=== PATIENT | female | born 2000 | race Caucasian/White ===

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

== ENCOUNTER 2021-10-05 16:29 | Emergency (ER) | payer OTHER, SELFPAY ==
[2021-10-05 18:00] VITALS: BP 126/74; PULSE 89; RESP 22; TEMP 36.8; O2SAT 98; BMI 34.7
[2021-10-05 18:10] LABS: Apearance,Urine Clear (Clear); Color,Urine Yellow (Yellow)
[2021-10-05 18:11] LABS: Bilirubin,Urine Negative (Negative); Blood, Urine Negative (Negative); Glucose,Urine (UA) Negative (Negative); Ketones,Urine Negative (Negative); Protein,Urine Negative (Negative); Specific Gravity, Urine 1.025 (1.005-1.030); UTC Leukocyte Esterase,Urine 1+ (Negative); UTC Nitrate,Urine Negative (Negative); Urobilinogen,Urine 0.2 EU/dl (0.2)
--- NOTE | 2021-10-05 18:16 | HMH.EDUTC ---
[facility] [place] Clinical Impression: UTI (urinary tract infection) Qualifiers: Urinary tract infection type: acute cystitis Hematuria presence: without hematuria Qualified Code(s): N30.00 - Acute cystitis without hematuria Disposition: Home, Self-Care Condition on Discharge: Good Instructions: DI for Urinary Tract Infection (UTI) Additional Instructions: Increase fluids, water and not soda or tea. Can drink cranberry juice or cranberry extract. White front to back Wear cotton underwear Empty bladder after intercourse Start antibiotics immediately and make sure you take the full course although you may start to see improvement over the next 48 hours. You can eat yogurt or take probiotics to decrease diarrhea or yeast infection caused by the antibiotic Be sure to follow-up anytime for new or worsening symptoms in 48 hours for wound urine culture results be sure to let you PCP no recent urine for culture so they can request records and ensure that you have appropriate antibiotic if you are not getting better or getting worse. If symptoms worsen or do not improve return or be seen in the ER. Follow-up with primary care this week. Prescriptions: cephALEXin [Cephalexin 500mg Tab] 500 mg PO BID 7 Days #14 tab Transmission Status: Pending to [facility] Referrals: Pancho Grace MD [Primary Care Provider] - Time of Disposition: 18:20 Medical Decision Making - Jorge A Inquiry Pt receiving controlled substance: No - Lab Data Lab Results 10/05/21 18:03: Urine Color Yellow, Urine Appearance Clear, Urine pH 7.0, Ur Specific [place] 1.025, Urine Protein Negative, Urine Glucose (UA) Negative, Urine Ketones Negative, Urine Blood Negative, Urine Nitrate Negative, Urine Bilirubin Negative, Urine Urobilinogen 0.2, Ur Leukocyte Esterase 1+ A Orders (Tests/Meds): ED MEDICATIONS Generic Name Dose Route Start Last Admin Trade Name Freq PRN Reason Stop Dose Admin Cephalexin HCl 500 mg 10/05/21 18:19 Cephalexin 500mg Capsule PO 10/05/21 18:20 ONCE ONE [facility] [place] - General Chief complaint: Urgent [facility] Stated complaint: UTI Time Seen by Provider: 10/05/21 18:16 Mode of Arrival: Ambulatory Source of Information: Patient Limitations: No Limitations - History of Present Illness Provider Complaint: 20 yr old female presents for burning, freq,urgency and low back pain - Related Data Home Medications Medication Instructions Recorded Confirmed etonogestrel 68 mg subdermal 68 mg SUBDERMAL ONCE each 01/25/19 09/02/20 implant Previous Rx's Medication Instructions Recorded methylPREDNISolone [Medrol 4mg 4 mg PO DIRECTED #21 tab 09/02/20 tab] cephALEXin [Cephalexin 500mg Tab] 500 mg PO BID 7 Days #14 tab 10/05/21 Allergies Allergy/AdvReac Type Severity Reaction Status Date / Time watermelon Allergy Mild Verified 07/23/20 15:35 cefdinir [From OMNICEF] Allergy Unknown Verified 07/23/20 15:35 [facility] History - Hepatitis A Screen Attestation statement:: This patient has been screened for Hepatitis A risk factors. I have reviewed the patient's past medical history: Yes Medical History: Reports:: Atrial Fibrillation, MRSA Denies:: Anxiety, Asthma, Cancer, Depression, Diabetes Mellitus Type 1, Diabetes Mellitus Type 2, Hyperlipidemia, Hypertension, Migraine, Seizures Other Medical History: Reports: Arthritis Comment: JEA Laterality Cases: Bilateral: Tonsillectomy Other Surgeries: No: Amputation: No Fractures: No Comment: tonsilectomy - Social History Smoking Status: Never smoker Alcohol Intake: never Substance Use Type: denies use Occupational Status: other - Psychiatric History Pschychiatric History:: Denies:: Anxiety, Depression Family Hx:: No significant family history ROS Obtained: Yes Systems reviewed as appropriate & no additional complaints - Constitutional Constitutional: Reports system reviewed and no additional complaints, except as d
[2021-10-05 18:26] VITALS: BP 126/74; PULSE 89; RESP 22; TEMP 36.8; O2SAT 98
== END 2021-10-05 18:38 | disposition home or self-care (01) ==
PROVIDERS: Emergency Provider Nurse Practitioner Family; PCP Family Medicine
DX: N30.00 Acute cystitis without hematuria (principal); M54.50 Low back pain, unspecified
CPT/HCPCS: 81003; 87086; 99202; G0463

== ENCOUNTER → 2021-11-07 15:51 | Outpatient (CLI) | payer OTHER, SELFPAY ==
[2021-11-10 12:44] LABS: Neisseria gonorrhoeae, NAA Negative (Negative)
== END ==
PROVIDERS: Visit Provider Obstetrics & Gynecology
DX: Z11.3 Encounter for screening for infections with a predominantly sexual mode of transmission (principal)
CPT/HCPCS: 87491; 87591

== ENCOUNTER 2022-03-03 18:09 | Emergency (ER) | payer OTHER, SELFPAY ==
[2022-03-03 18:11] VITALS: BP 117/89; PULSE 90; RESP 16; TEMP 36.9; O2SAT 100; BMI 31.6
--- NOTE | 2022-03-03 18:21 | HMH.EDGENADL ---
ED Disposition Clinical Impression: Nausea & vomiting Qualifiers: Vomiting type: unspecified Qualified Code(s): R11.2 - Nausea with vomiting, unspecified Diarrhea Qualifiers: Diarrhea type: unspecified type Qualified Code(s): R19.7 - Diarrhea, unspecified Disposition: Home, Self-Care Condition on Discharge: Good Instructions: Diarrhea, Nausea and Vomiting-Adult Additional Instructions: follow up PCP as needed, return here for worse Prescriptions: Ondansetron [Zofran 4mg ODT] 4 mg PO TIDP PRN #10 tab PRN Reason: Nausea And Vomiting Transmission Status: Received by [facility] Referrals: Pancho Grace MD [Primary Care Provider] - - Critical Care Critical Care Time: No Attestation: On , the high probability of a clinically significant, sudden or life threatening deterioration of the following system(s) required my full and direct attention, intervention and personal management. The time I documented below is in addition to time spent performing reported procedures but includes the following listed in this critical care notation. Medical Decision Making - Medical Records Medical records reviewed: Yes: I reviewed the patient's medical records. - Jorge A Inquiry Pt receiving controlled substance: No Vital Signs: 03/03/22 18:11 Temperature 98.5 F Temperature Source Oral Pulse Rate [Right] 90 Respiratory Rate 16 Blood Pressure [Right Arm] 117/89 Blood Pressure Mean [Right Arm] 98 Blood Pressure Source [Right Arm] Automatic Cuff Blood Pressure Position [Right Arm] Sitting 02 Sat by Pulse Oximetry 100 Oxygen Delivery Method Room Air - Lab Data Lab Results 03/03/22 18:40: WBC 11.4, RBC 5.16, Hgb 16.9 H, Hct 49.1 H, MCV 95.1, MCH 32.8 H, MCHC 34.5, RDW 13.0, Plt Count 254, MPV 9.3, Neut % (Auto) 88.6 H, Lymph % (Auto) 5.6 L, [place] % (Auto) 3.1, Eos % (Auto) 0.9, Baso % (Auto) 1.8, Neut # (Auto) 10.1 H, Lymph # (Auto) 0.6 L, [place] # (Auto) 0.4, Eos # (Auto) 0.1, Baso # (Auto) 0.2, Total Counted 100, Neutrophils % (Manual) 91 H, Lymphocytes % (Manual) 6 L, Monocytes % (Manual) 2, Eosinophils % (Manual) 1, Platelet Estimate Normal 03/03/22 18:40: Sodium 141, Potassium 3.9, Chloride 105, Carbon Dioxide 21 L, Anion Gap 18.9 H, BUN 10, Creatinine 0.80, Estimated Creat Clear 153, Estimated GFR 91, Est GFR ( Amer) 111, Glucose 153 H, Calcium 9.9, Total Bilirubin 0.9, AST 30, ALT 24, Alkaline Phosphatase 83, Total Protein 8.3 H, Albumin 5.0, Globulin 3.3 H, Albumin/Globulin Ratio 1.5 Result diagrams: 03/03/22 18:40 03/03/22 18:40 Orders (Tests/Meds): ED MEDICATIONS Generic Name Dose Route Start Last Admin Trade Name Freq PRN Reason Stop Dose Admin Sodium Chloride 1,000 mls @ 999 mls/hr 03/03/22 18:30 03/03/22 18:35 Sod Chlor 0.9% 1000ml Bag IV 03/03/22 19:30 999 mls/hr .Q1H1M PETE Administration Discontinued Medications Generic Name Dose Route Start Last Admin Trade Name Freq PRN Reason Stop Dose Admin Metoclopramide HCl 10 mg 03/03/22 18:20 03/03/22 18:34 Metoclopramide Hcl 10mg/2ml Vial IVP 03/03/22 18:21 10 mg ONCE ONE Administration Ondansetron HCl 8 mg 03/03/22 18:20 03/03/22 18:35 Ondansetron 4mg/2ml Vial IV 03/03/22 18:21 8 mg ONCE ONE Administration Medical Decision Narrative: reeval, vss, appears well, feels better, abd s/nt General Adult HPI - General Stated complaint: vomiting and diarrhea Time Seen by Provider: 03/03/22 18:21 - History of Present Illness HPI narrative: n/v/d all day pt/mom say it similar to stomach bug mom had last week tamara abd pain Onset (ago): hour(s) Radiation: non-radiation Consistency: constant Relieving factors: none Exacerbating factors: eating Associated symptoms: nausea/vomiting - Related Data Home Medications Medication Instructions Recorded Confirmed etonogestrel 68 mg subdermal 68 mg SUBDERMAL ONCE each 01/25/19 11/07/21 implant Previous Rx's Medication Instruct
--- NOTE | 2022-03-03 18:29 | PC.NURSE ---
pt Pt to bathroom
[2022-03-03 18:53] LABS: Basophils # 0.2 K/mm3 (0-0.2); Basophils % 1.8 % (0.1-2.0); Eosinophils # 0.1 K/mm3 (0.0-0.4); Eosinophils % 0.9 % (0.1-12.0); Hematocrit 49.1 % (37.0-47.0); Hemoglobin 16.9 g/dL (12.2-16.2); Lymphocytes # 0.6 K/mm3 (0.7-4.5); Lymphocytes % 5.6 % (10-50); Mean Corpuscular HGB Conc 34.5 g/dL (31.8-35.4); Mean Corpuscular Hemoglobin 32.8 pg (27.0-31.2); Mean Corpuscular Volume 95.1 fl (81-99); Mean Platelet Volume 9.3 fl (7.4-10.4); Monocytes # 0.4 K/mm3 (0.1-1.0); Monocytes % 3.1 % (1.7-9.3); Neutrophils # 10.1 K/mm3 (1.8-7.8); Neutrophils % 88.6 % (37.0-80.0); Platelet Count 254 K/mm3 (142-424); Red Blood Count 5.16 M/mm3 (4.20-5.40); White Blood Count 11.4 K/mm3 (4.5-13.0)
[2022-03-03 18:59] LABS: MANUAL DIFFERENTIAL MANUAL DIFFERENTIAL (MANUAL DIFF)
[2022-03-03 19:01] LABS: Alanine Aminotransferase 24 U/L (12-78); Albumin/Globulin Ratio 1.5 (1.1-1.8); Alkaline Phosphatase 83 U/L (38-126); Anion Gap 18.9 mEq/L (5-15); Aspartate Amino Transferase 30 U/L (14-36); Bilirubin,Total 0.9 mg/dl (0.2-1.3); Blood Urea Nitrogen 10 mg/dl (7-17); Calcium 9.9 mg/dl (8.4-10.2); Carbon Dioxide 21 mmol/L (22.0-30.0); Chloride 105 mmol/L (98-107); Creatinine Clearance Estimated 153 mL/min (50-200); Estimated Glomerular Filt Rate 91 ml/min (>60); GFR (African American) 111 ML/MIN (>60); Globulin 3.3 g/dL (1.3-3.2); Glucose 153 mg/dl (74-100); Potassium 3.9 mmoL/L (3.5-5.1); Sodium 141 mmol/L (136-145); Total Protein,Serum 8.3 g/dl (6.3-8.2)
--- NOTE | 2022-03-03 19:02 | PC.NURSE ---
pt resting in bed, warm blanket provided. No new needs at this time
[2022-03-03 19:19] LABS: Eosinophils % 1 % (0-3); Lymphocytes % 6 % (10-50); Monocytes % 2 % (2-9); Neutrophils % 91 % (42-76); Platelet Estimate Normal; Total Cells Counted 100
[2022-03-03 20:08] VITALS: BP 115/74; PULSE 81; RESP 16; TEMP 36.9; O2SAT 100
== END 2022-03-03 20:17 | disposition home or self-care (01) ==
PROVIDERS: Emergency Provider Emergency Medicine; PCP Family Medicine
DX: R11.2 Nausea with vomiting, unspecified (principal); R19.7 Diarrhea, unspecified; Z88.1 Allergy status to other antibiotic agents; Z86.14 Personal history of Methicillin resistant Staphylococcus aureus infection; I48.91 Unspecified atrial fibrillation; M19.90 Unspecified osteoarthritis, unspecified site
CPT/HCPCS: 80053; 85007; 85025; 96365; 96375; 99284; J2405

== ENCOUNTER 2022-05-31 15:41 | Emergency (ER) | payer OTHER, SELFPAY ==
[2022-05-31 16:40] VITALS: BP 125/66; PULSE 86; RESP 19; TEMP 36.8; O2SAT 98; BMI 31.6
[2022-05-31 16:46] LABS: UTC Strep Screen (Rapid) Negative (Negative)
--- NOTE | 2022-05-31 17:18 | HMH.EDUTC ---
[facility] [place] Clinical Impression: Sore throat (viral) UTI (urinary tract infection) Qualifiers: Urinary tract infection type: site unspecified Hematuria presence: without hematuria Qualified Code(s): N39.0 - Urinary tract infection, site not specified Disposition: Home, Self-Care Condition on Discharge: Good Instructions: Sore Throat, DI for Urinary Tract Infection (UTI) Additional Instructions: *Monitor Temp, Over the counter Motrin or Tylenol as directed/as needed Tylenol every 4 hours and Motrin every 6 hours (as long as your family doctor has told you that you can take it) for fever or pain. and straight to ER if unable to lower temp less than 101.0 after medication given *Warm salt water gargles may help to soothe the throat *Throat Lozenges *Warm fluids like tea with honey may help to soothe the throat *Sleep elevated *Humidifier/Vaporizer Your throat swab was sent for culture. Those results are typically sent to your primary care. Be sure to follow up in 2-3 days with your family doctor/primary care physician if no improvement so they can review those result and treat if necessary. If you don?t have a primary care doctor, I recommend you get one but in the mean time, you will have to return to a walk in clinic Follow up IMMEDIATELY for new or worsening symptoms or no Noticeable improvement over the next 48-72 hours. 911 for difficulty breathing or swallowing You were tested for today for COVID19 your test result should be back in the next 24-48 hours, you may check your results on the [facility] My Health Portal Make sure to take your Vitamins Vit. C Vit D and Zinc if you can take them Prescriptions: Nitrofurantoin Monohyd/M-Cryst [Macrobid 100 mg Capsule] 100 mg PO BID 5 Days #10 cap Transmission Status: Pending to [facility] Referrals: Pancho Grace MD [Primary Care Provider] - As needed Forms: Work/School Release Medical Decision Making - Jorge A Inquiry Pt receiving controlled substance: No Jorge A was queried for this patient: No Vital Signs: 05/31/22 16:40 Temperature 98.3 F Temperature Source Oral Pulse Rate [Left Brachial] 86 Respiratory Rate 19 Blood Pressure [Left Arm] 125/66 Blood Pressure Mean [Left Arm] 85 Blood Pressure Source [Left Arm] Automatic Cuff Blood Pressure Position [Left Arm] Sitting 02 Sat by Pulse Oximetry 98 Oxygen Delivery Method Room Air - Lab Data Lab results reviewed: Yes: I reviewed the patient's lab results. Lab Results 05/31/22 16:24: Urine HCG, Qual Negative 05/31/22 16:38: Strep Scn Rapid [facility] Negative 05/31/22 17:19: Urine Color Yellow, Urine Appearance Clear, Urine pH 6.5, Ur Specific [place] >= 1.030, Urine Protein 1+, Urine Glucose (UA) Negative, Urine Ketones Negative, Urine Blood Negative, Urine Nitrate Negative, Urine Bilirubin Negative, Urine Urobilinogen 1, Ur Leukocyte Esterase Trace Orders (Tests/Meds): ORDERS Category Date Time Status Strep Screen Confirmation Stat Micro 05/31/22 16:38 Received Urine Culture Stat Micro 05/31/22 16:24 Received [facility] [place]PI - General Stated complaint: poss strep throat Time Seen by Provider: 05/31/22 17:18 Mode of Arrival: Ambulatory Source of Information: Patient Limitations: No Limitations Description of Symptoms (Recalled from Triage Doc. by RN): PATIENT C/O SORE THROAT SINCE WEDNESDAY HEENT Symptoms (Recalled from RN notes): Yes Resp Symptoms (Recalled from RN notes): No Skin Symptoms (Recalled from RN notes): No MS Symptoms (Recalled from RN notes): No Functional Status (Recalled from RN notes): WNL - History of Present Illness Provider Complaint: Patient states that she has been having sore throat since Wednesday that has continued and today was feeling worse States that it hurts when she swallows States that she hasnt been around COVID that she is aware of but some people at work has been coughing State that she has also been having some burning with urination and feeling of urgency an
[2022-05-31 17:25] LABS: Apearance,Urine Clear (Clear); Color,Urine Yellow (Yellow); PH,Urine 6.5 (5.0-8.5); Specific Gravity, Urine >= 1.030 (1.005-1.030)
[2022-05-31 17:26] LABS: Bilirubin,Urine Negative (Negative); Blood, Urine Negative (Negative); Glucose,Urine (UA) Negative (Negative); Ketones,Urine Negative (Negative); Protein,Urine 1+ (Negative); UTC Leukocyte Esterase,Urine Trace (Negative); UTC Nitrate,Urine Negative (Negative); Urobilinogen,Urine 1 EU/dl (0.2)
[2022-05-31 17:35] LABS: Urine Pregnancy, HCG Qual. Negative (Negative)
[2022-05-31 17:50] VITALS: BP 125/66; PULSE 86; RESP 19; TEMP 36.8; O2SAT 98
== END 2022-05-31 18:00 | disposition home or self-care (01) ==
PROVIDERS: Emergency Provider Nurse Practitioner; PCP Family Medicine
DX: J02.8 Acute pharyngitis due to other specified organisms (principal); N39.0 Urinary tract infection, site not specified; Z20.822 Contact with and (suspected) exposure to COVID-19
CPT/HCPCS: 81003; 81025; 87086; 87880; 99212; C9803; G0463; U0003; U0005

== ENCOUNTER 2022-09-23 18:20 | Emergency (ER) | payer OTHER, SELFPAY ==
[2022-09-23 18:21] VITALS: BP 128/79; PULSE 83; RESP 17; TEMP 36.7; O2SAT 100; BMI 33.3
--- NOTE | 2022-09-23 18:22 | PC.NURSE ---
1822 PT PLACED IN C-COLLAR
[2022-09-23 18:33] VITALS: BMI 33.3
--- NOTE | 2022-09-23 18:43 | PC.NURSE ---
DR. COATES AT BEDSIDE
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
--- NOTE | 2022-09-23 18:49 | PC.NURSE ---
C-COLLAR REMOVED PER DR. COATES
[2022-09-23 18:52] LABS: Urine Pregnancy, HCG Qual. Negative (Negative)
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
[2022-09-23 20:44] VITALS: BP 128/79; PULSE 77; RESP 18; TEMP 36.7; O2SAT 100
== END 2022-09-23 20:52 | disposition home or self-care (01) ==
PROVIDERS: Emergency Provider Student in an Organized Health Care Education/Training Program; PCP Family Medicine
DX: R07.9 Chest pain, unspecified (principal); M54.2 Cervicalgia; J02.9 Acute pharyngitis, unspecified; R11.2 Nausea with vomiting, unspecified; R21 Rash and other nonspecific skin eruption; Z79.3 Long term (current) use of hormonal contraceptives; Z79.899 Other long term (current) drug therapy; Z88.8 Allergy status to other drugs, medicaments and biological substances; Z91.018 Allergy to other foods; V49.40XA Driver injured in collision with unspecified motor vehicles in traffic accident, initial encounter
CPT/HCPCS: 71045; 71250; 81025; 99285

== ENCOUNTER 2023-05-24 18:05 | Emergency (ER) | payer OTHER, SELFPAY ==
[2023-05-24 18:10] VITALS: BP 136/78; PULSE 87; RESP 18; TEMP 37.2; O2SAT 98; BMI 35.8
--- NOTE | 2023-05-24 18:29 | EXP.UTC ---
Discharge Plan Disposition Patient Disposition: Home, Self-Care Condition: Good Prescriptions Prescriptions: No Action Nexplanon 68 mg implant 68 mg SUBDERMAL ONCE ketorolac 10 mg tablet 10 mg PO Q8H 5 Days Qty: 15 0RF ondansetron 4 MG tablet,disintegrating 4 mg PO TIDP PRN (Reason: Nausea And Vomiting) Qty: 10 0RF nitrofurantoin monohyd/m-cryst 100 MG capsule 100 mg PO BID 5 Days Qty: 10 0RF Referrals Follow up/Referrals: Pancho Grace MD [Primary Care Provider] - See instructions Activity Restrictions/Add. Instructions Additional Instructions/Restrictions: *Monitor Temp, Over the counter Motrin or Tylenol as directed/as needed Tylenol every 4 hours and Motrin every 6 hours (as long as your family doctor has told you that you can take it) for fever or pain. and straight to ER if unable to lower temp less than 101.0 after medication given *Warm salt water gargles may help to soothe the throat *Throat Lozenges? *Warm fluids like tea with honey may help to soothe the throat? *Sleep elevated *Humidifier/Vaporizer Your throat swab was sent for culture. Those results are typically sent to your primary care. Be sure to follow up in 2-3 days with your family doctor/primary care physician if no improvement so they can review those result and treat if necessary. If you don?t have a primary care doctor, I recommend you get one but in the mean time, you will have to return to a walk in clinic Follow up IMMEDIATELY for new or worsening symptoms or no Noticeable improvement over the next 48-72 hours. 911 for difficulty breathing or swallowing Over the counter cough and cold medications may help with nasal congestion, headache and sore throat Clinical Impressions Clinical Impression: Viral upper respiratory infection Stand Alone Forms Stand Alone Forms: Work/School Release Instructions Patient Instructions: Sore Throat, DI for Viral Upper Respiratory Infection -- Adult Discharge ED Provider: Chelsea Garcia [facility] [place] HPI General Stated complaint: sore throat,headache, nausea Mode of Arrival: Ambulatory Source of Information: Patient Limitations: No Limitations Time Seen by Provider: 05/24/23 18:29 Description of Symptoms (Recalled from Triage Doc. 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 States that she has been having headache, sore throat, cough and nausea on and off since yesterday States that today she was feeling worse and worried that she may have strep throat or something so she came in to get checked Related Data Home Medications Medication Instructions Recorded Confirmed etonogestrel 68 mg subdermal 68 mg subdermal ONCE control 01/25/19 11/07/21 implant (Nexplanon) Previous Rx's Medication Instructions Recorded ondansetron 4 mg disintegrating 4 mg PO TIDP PRN Nausea And 03/03/22 tablet Vomiting #10 tabs nitrofurantoin 100 mg PO BID 5 days #10 caps 05/31/22 monohydrate/macrocrystals 100 mg capsule ketorolac 10 mg tablet 10 mg PO Q8H 5 days #15 tabs 09/23/22 Allergies Allergy/AdvReac Type Severity Reaction Status Date / Time cephalexin Allergy Mild Verified 11/07/21 10:15 watermelon Allergy Mild Verified 11/07/21 10:15 cefdinir [From OMNICEF] Allergy Unknown Verified 11/07/21 10:15 Worker's Comp Is this a Worker's Comp case?: No [facility] Disclaimer: The information contained in this section may have been updated after the patient was seen, as this information can be updated by other users. Medical History (Updated 05/24/23 @ 18:43
[2023-05-24 18:31] LABS: UTC Strep Screen (Rapid) Negative (Negative)
[2023-05-24 18:38] VITALS: BP 136/78; PULSE 87; RESP 18; TEMP 37.2; O2SAT 98
== END 2023-05-24 18:40 | disposition home or self-care (01) ==
PROVIDERS: Emergency Provider Nurse Practitioner; PCP Family Medicine
DX: B34.9 Viral infection, unspecified (principal); J06.9 Acute upper respiratory infection, unspecified; R51.9 Headache, unspecified; R11.0 Nausea
CPT/HCPCS: 87880; 99212; 99213; G0463

== ENCOUNTER 2023-07-08 17:35 | Emergency (ER) | payer OTHER, SELFPAY ==
[2023-07-08 17:36] VITALS: BP 132/84; PULSE 74; RESP 18; TEMP 37; O2SAT 99; BMI 37.3
--- NOTE | 2023-07-08 17:45 | EXP.UTC ---
Discharge Plan Disposition Patient Disposition: Home, Self-Care Condition: Good Prescriptions Prescriptions: New ondansetron 4 mg Tablet,Disintegrating 4 mg PO Q8H PRN (Reason: Nausea) Qty: 12 0RF No Action Nexplanon 68 mg implant 68 mg SUBDERMAL ONCE ketorolac 10 mg tablet 10 mg PO Q8H 5 Days Qty: 15 0RF Referrals Follow up/Referrals: Pancho Grace MD [Primary Care Provider] - See instructions Activity Restrictions/Add. Instructions Additional Instructions/Restrictions: Drink plenty of fluids. Water or a sports electrolyte drink like gatorade would be best. Take tylenol for pain or fever. Take the zofran as directed for nausea/vomiting. Follow up with your regular doctor. GO TO THE ER FOR ANY WORSENING SYMPTOMS Clinical Impressions Clinical Impression: Acute viral syndrome, Gastroenteritis Stand Alone Forms Stand Alone Forms: Work/School Release Instructions Patient Instructions: DI for Viral Gastroenteritis -- Adult, Ondansetron Discharge ED Provider: Brandon Blake [facility] General Stated complaint: lower back pain, nausea Time Seen by Provider: 07/08/23 17:45 History of Present Illness Provider Complaint: She states that for the past 3 days she has had nausea/vomiting and abdominal cramping. She had diarrhea with her symptoms at first, but that has resolved. Related Data Home Medications Medication Instructions Recorded Confirmed etonogestrel 68 mg subdermal 68 mg subdermal ONCE control 01/25/19 11/07/21 implant (Nexplanon) Previous Rx's Medication Instructions Recorded ketorolac 10 mg tablet 10 mg PO Q8H 5 days #15 tabs 09/23/22 ondansetron 4 mg disintegrating 4 mg PO Q8H PRN Nausea #12 tabs 07/08/23 tablet Allergies Allergy/AdvReac Type Severity Reaction Status Date / Time cephalexin Allergy Mild Verified 07/08/23 18:10 watermelon Allergy Mild Verified 07/08/23 18:10 cefdinir [From OMNICEF] Allergy Unknown Verified 07/08/23 18:[address] [facility] Disclaimer: The information contained in this section may have been updated after the patient was seen, as this information can be updated by other users. Medical History (Updated 07/08/23 @ 19:25 by Brandon Blake APRN) Social History Smoking Status: Never smoker alcohol intake: never substance use type: denies use current occupational status: other Travel in the last 8 weeks: None ROS Obtained: Yes All systems reviewed & no additional complaints except as documented Constitutional Constitutional: Denies chills, Denies fever(s) and Reports poor appetite ENT Ears, Nose, Mouth, and Throat: Denies dizziness and Denies sore throat Cardiovascular Cardiovascular: Denies dyspnea Respiratory Respiratory: Denies chest congestion, Denies cough and Denies dyspnea Gastrointestinal Gastrointestingal: Reports as per HPI; Denies abdominal pain Genitourinary Female Genitourinary: Denies difficulty voiding, Denies dysuria, Denies hematuria, Denies urinary frequency, Denies urinary incontinence, Denies urinary hesitancy and Denies urinary urgency Musculoskeletal Musculoskeletal: Denies arthralgias Integumentary/Breasts Skin/Breast: Denies rash Neurologic Neurologic: Denies dizziness Physical Exam General General appearance: alert and in no apparent distress Head Head exam: atraumatic and normocephalic Eye Eye exam: Present normal appearance, PERRL and EOMI ENT ENT exam: Present normal exam, normal oropharynx, mucous membranes moist, TM's normal bilaterally and normal external ear exam Neck Neck exam: Present normal inspection, full ROM and trachea midline; Absent tenderness, meningismus or lymphadenopathy Chest Chest inspection: Present normal inspection and symmetric chest wall rise; Absent tenderness, rash or abscess Respiratory Respiratory exam: Present normal lung sounds bilaterally; Absent respiratory distress, wheezes o
[2023-07-08 17:56] LABS: Microscopic, Urine URINE MICROSCOPIC (MICROSCOPIC)
[2023-07-08 18:08] LABS: Appearance,Urine CLEAR (Clear); Bilirubin,Urine Negative (Negative); Blood, Urine Negative (Negative); Color,Urine YELLOW (Yellow); Glucose,Urine (UA) Negative (Negative); Ketones,Urine Negative (Negative); Leukocyte Esterase,Urine Negative (Negative); Nitrate,Urine Negative (Negative); Protein,Urine Negative (Negative); Specific Gravity, Urine 1.025 (1.005-1.030)
[2023-07-08 18:32] LABS: Amorphous Sediment,Urine 1+ /lpf; Squamous Epithelial Cell,Urine Occasional #/hpf (0-5); WBC,Urine Occasional #/hpf (0-3)
[2023-07-08 18:49] LABS: Basophils % 0.7 % (0.1-2.0); Eosinophils # 0.1 K/mm3 (0.0-0.4); Eosinophils % 1.7 % (0.1-12.0); Hematocrit 46.2 % (37.0-47.0); Hemoglobin 15.2 g/dL (12.2-16.2); Lymphocytes # 2.3 K/mm3 (0.7-4.5); Lymphocytes % 36.4 % (10-50); Mean Corpuscular HGB Conc 32.9 g/dL (31.8-35.4); Mean Corpuscular Volume 94.1 fl (81-99); Mean Platelet Volume 8.9 fl (7.4-10.4); Monocytes # 0.3 K/mm3 (0.1-1.0); Monocytes % 5.4 % (1.7-9.3); Neutrophils # 3.6 K/mm3 (1.8-7.8); Neutrophils % 55.9 % (37.0-80.0); Platelet Count 196 K/mm3 (142-424); Red Blood Count 4.91 M/mm3 (4.20-5.40); Red Cell Distribution Width 12.6 % (11.5-17.5); White Blood Count 6.4 K/mm3 (4.8-10.8)
[2023-07-08 19:00] LABS: Chloride 107 mmol/L (98-107); Potassium 4.1 mmoL/L (3.5-5.1); Sodium 142 mmol/L (136-145)
[2023-07-08 19:02] LABS: Amylase 62 U/L (30-110)
[2023-07-08 19:03] LABS: Alanine Aminotransferase 25 U/L (12-78); Albumin Level 4.4 g/dl (3.5-5.0); Albumin/Globulin Ratio 1.3 (1.1-1.8); Alkaline Phosphatase 65 U/L (38-126); Anion Gap 14.1 mEq/L (5-15); Aspartate Amino Transferase 29 U/L (14-36); Bilirubin,Total 0.3 mg/dl (0.2-1.3); Blood Urea Nitrogen 16 mg/dl (7-17); Calcium 8.7 mg/dl (8.4-10.2); Carbon Dioxide 25 mmol/L (22.0-30.0); Creatinine Clearance Estimated 179 mL/min (50-200); Estimated Glomerular Filt Rate 91 ml/min (>60); GFR (African American) 110 ML/MIN (>60); Globulin 3.3 g/dL (1.3-3.2); Glucose 118 mg/dl (74-100); Lipase 72 U/L (23-300); Total Protein,Serum 7.7 g/dl (6.3-8.2)
[2023-07-08 19:10] LABS: HCG Qualitative, Serum Negative (Negative)
[2023-07-08 19:31] VITALS: BP 132/84; PULSE 74; RESP 18; TEMP 37; O2SAT 99
== END 2023-07-08 19:31 | disposition home or self-care (01) ==
PROVIDERS: Emergency Provider Nurse Practitioner Family; PCP Family Medicine
DX: A08.4 Viral intestinal infection, unspecified (principal); R11.2 Nausea with vomiting, unspecified
CPT/HCPCS: 80053; 81001; 82150; 83690; 84703; 85025; 87086; 99212; 99214; G0463

== ENCOUNTER 2023-07-12 17:13 | Emergency (ER) | payer OTHER, SELFPAY ==
[2023-07-12 17:14] VITALS: BP 115/73; PULSE 80; RESP 18; TEMP 36.8; O2SAT 98; BMI 36.6
--- NOTE | 2023-07-12 18:06 | PC.NURSE ---
DR AG AT BEDSIDE
--- NOTE | 2023-07-12 18:11 | HMH.EDGENADL ---
Discharge Plan Disposition Patient Disposition: Home, Self-Care Condition: Good Prescriptions Prescriptions: New pantoprazole 40 mg tablet,delayed release (DR/EC) 40 mg PO DAILY Qty: 30 0RF dicyclomine 10 mg capsule 10 mg PO QID PRN (Reason: abdominal pain) Qty: 20 0RF No Action Nexplanon 68 mg implant 68 mg SUBDERMAL ONCE ketorolac 10 mg tablet 10 mg PO Q8H 5 Days Qty: 15 0RF ondansetron 4 mg Tablet,Disintegrating 4 mg PO Q8H PRN (Reason: Nausea) Qty: 12 0RF Referrals Follow up/Referrals: Pancho Grace MD [Primary Care Provider] - See instructions Activity Restrictions/Add. Instructions Additional Instructions/Restrictions: You were evaluated in the emergency department today. 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 Follow-up with your primary care provider over the next 3 days for reassessment. Eat a bland diet until your symptoms have resolved. Return to the emergency department for any new or worsening symptoms. Clinical Impressions Clinical Impression: Gastritis Instructions Patient Instructions: DI for Gastritis, DI for Acute Abdominal Pain Discharge ED Provider: Shanique Antonio General Adult HPI General Chief complaint: Abdominal Pain Stated complaint: vomiting, diarrhea Time Seen by Provider: 07/12/23 17:55 Mode of Arrival: Ambulatory Source of Information: Patient Limitations: No Limitations Description of Symptoms (Recalled from ER Triage Doc. by RN): PT REPORTS ABDOMINAL PAIN, BLOATING, NAUSEA AND VOMITING. SYMPTOMS STARTED ON WEDNESDAY, NO IMPROVEMENT. PAIN WORSE AT NIGHT. EMESIS THIS AM AT 0930, REPORTS DIARRHEA SINCE THIS AM AFTER TAKING A STOOL SOFTENER LAST NIGHT History of Present Illness HPI narrative: This patient is a 22-year-old female who denies significant past medical history presenting to the emergency department for evaluation with concern for nausea, vomiting, and diarrhea. She states this started approximately a week ago, and she was seen in urgent treatment center on 07/08/2023. She was diagnosed with an acute viral syndrome and given instructions for supportive management as an outpatient. She states that despite taking nausea medication, her symptoms have gotten worse. She thought maybe she was having constipation, as she had not had a bowel movement since Wednesday, however she took laxatives yesterday and had multiple episodes of diarrhea this morning. She states that she has had upper abdominal cramping, bloating, and frequent belching. Her symptoms are worsened anytime she tries to eat or drink. Her symptoms have been worse at night and she has had upper abdominal cramping associated with this. She denies any fevers, cough, congestion, dysuria, hematuria, polyuria, or other concerns. Related Data Home Medications Medication Instructions Recorded Confirmed etonogestrel 68 mg subdermal 68 mg subdermal ONCE control 01/25/19 11/07/21 implant (Nexplanon) Previous Rx's Medication Instructions Recorded ketorolac 10 mg tablet 10 mg PO Q8H 5 days #15 tabs 09/23/22 ondansetron 4 mg disintegrating 4 mg PO Q8H PRN Nausea #12 tabs 07/08/23 tablet dicyclomine 10 mg capsule 10 mg PO QID PRN abdominal pain 07/12/23 #20 caps pantoprazole 40 mg tablet,delayed 40 mg PO DAILY #30 tabs 07/12/23 release Allergies Allergy/AdvReac Type Severity Reaction Status Date / Time cephalexin Allergy Mild Verified 07/08/23 18:10 watermelon Allergy Mild Verified 07/08/23 18:10 cefdinir [From OMNICEF] Allergy Unknown Verified 07/08/23 18:10 [facility] Disclaimer: The information contained in this section may have been updated after the patient was seen, as this information can be updated by other users. Medical History Social History Smoking Status: Never smoker alcohol intake
[2023-07-12 18:17] LABS: Basophils # 0.1 K/mm3 (0-0.2); Basophils % 0.7 % (0.1-2.0); Eosinophils # 0.1 K/mm3 (0.0-0.4); Eosinophils % 1.2 % (0.1-12.0); Hematocrit 46.1 % (37.0-47.0); Hemoglobin 15.3 g/dL (12.2-16.2); Lymphocytes # 2.8 K/mm3 (0.7-4.5); Lymphocytes % 38.3 % (10-50); Mean Corpuscular HGB Conc 33.3 g/dL (31.8-35.4); Mean Corpuscular Volume 93.3 fl (81-99); Mean Platelet Volume 8.9 fl (7.4-10.4); Monocytes # 0.4 K/mm3 (0.1-1.0); Monocytes % 6.2 % (1.7-9.3); Neutrophils # 3.8 K/mm3 (1.8-7.8); Neutrophils % 53.5 % (37.0-80.0); Platelet Count 221 K/mm3 (142-424); Red Blood Count 4.94 M/mm3 (4.20-5.40); Red Cell Distribution Width 12.6 % (11.5-17.5); White Blood Count 7.2 K/mm3 (4.8-10.8)
[2023-07-12 18:23] LABS: Chloride 102 mmol/L (98-107); Sodium 140 mmol/L (136-145)
[2023-07-12 18:24] LABS: Potassium 4.1 mmoL/L (3.5-5.1)
[2023-07-12 18:26] LABS: Alanine Aminotransferase 23 U/L (12-78); Albumin Level 4.3 g/dl (3.5-5.0); Albumin/Globulin Ratio 1.3 (1.1-1.8); Alkaline Phosphatase 51 U/L (38-126); Anion Gap 12.1 mEq/L (5-15); Aspartate Amino Transferase 30 U/L (14-36); Bilirubin,Total 0.6 mg/dl (0.2-1.3); Blood Urea Nitrogen 14 mg/dl (7-17); Calcium 9.1 mg/dl (8.4-10.2); Carbon Dioxide 30 mmol/L (22.0-30.0); Creatinine Clearance Estimated 140 mL/min (50-200); Estimated Glomerular Filt Rate 70 ml/min (>60); GFR (African American) 85 ML/MIN (>60); Globulin 3.2 g/dL (1.3-3.2); Glucose 108 mg/dl (74-100); Lipase 71 U/L (23-300); Total Protein,Serum 7.5 g/dl (6.3-8.2)
[2023-07-12 18:31] VITALS: BP 107/76; PULSE 79; RESP 20; O2SAT 98
[2023-07-12 18:31] LABS: HCG Qualitative, Serum Negative (Negative)
[2023-07-12 19:00] VITALS: BP 113/67; PULSE 72; RESP 20; O2SAT 98
--- NOTE | 2023-07-12 19:28 | PC.NURSE ---
pt given water for PO challenge
[2023-07-12 19:32] LABS: Microscopic, Urine URINE MICROSCOPIC (MICROSCOPIC)
[2023-07-12 19:35] LABS: Appearance,Urine CLEAR (Clear); Bilirubin,Urine Negative (Negative); Blood, Urine Negative (Negative); Color,Urine YELLOW (Yellow); Glucose,Urine (UA) Negative (Negative); Ketones,Urine Negative (Negative); Leukocyte Esterase,Urine Negative (Negative); Nitrate,Urine Negative (Negative); Protein,Urine Negative (Negative); Specific Gravity, Urine 1.025 (1.005-1.030); Urobilinogen,Urine 0.2 EU/dl (0.2)
[2023-07-12 19:50] VITALS: BP 114/74; PULSE 92; RESP 14; TEMP 36.8
[2023-07-12 19:51] LABS: Squamous Epithelial Cell,Urine Occasional #/hpf (0-5)
== END 2023-07-12 19:54 | disposition home or self-care (01) ==
PROVIDERS: Emergency Provider Emergency Medicine; PCP Family Medicine
DX: K29.70 Gastritis, unspecified, without bleeding (principal); R19.7 Diarrhea, unspecified; R11.2 Nausea with vomiting, unspecified
CPT/HCPCS: 80053; 81001; 83690; 84703; 85025; 96361; 96374; 96375; 99285; J2405

== ENCOUNTER 2025-09-29 08:22 | Outpatient (CLI) | payer OTHER, SELFPAY ==
--- OUTSIDE RECORDS SUMMARY | 2025-09-26 11:00 | XMS_ITS | Encounter Summary ---
Author Organization [employer] ([place], [place], [place], [place], [place]) Address [address] [place] [address] Care Team Providers Care Aeroplane Pilot Name Role Phone Pancho Grace MD Primary Care Provider [phone] Encounter Details Date Type Department Care Team (Late st Contact Info) Description 09/26/2025 11:00 AM EST Procedure Visit [facility] [employer] - [employer] [address] [facility] [address] [place] [address] Missed menses Social History Tobacco Use Types Packs/Day Years Used Date Smoking Tobacco: Never Smokeless Tobacco: Never Alcohol Use Standard Drinks/Week Comments Never 0 (1 standard drink = 0.6 oz pur e alcohol) [facility] - Mental Health Answer Date Recorde d Little interest or pleasure in doing things Not at all 09/27/2025 Feeling down, depressed, or hopeless Not at all 09/27/2025 Feeling of Stress Not on file 09/27/2025 Utilities Answer Date Recorded In the past 12 months, has t he electric, gas, oil, or water company threatened to shut off services in your home? No 05/24/2025 Interpersonal Safety Answer Date Record ed How often does anyone, martin solitario family and friends, physically hurt you? Never 05/24/2025 How often does anyone, martin solitario family and friends, insult or talk down to you? Never 05/24/2025 How often does anyone, martin solitario family and friends, threaten you with harm? Never 05/24/2025 How often does anyone, martin solitario family and friends, scream or curse at you? Never 05/24/2025 Housing Stability Answer Date Recorded What is your living situation today? I have a [facility] place to live 05/24/[address] you li ve. Do you have problems with any of the following? None of the above 05/24/2025 Food Insecurity Answer Date Recorded Within the past 12 months, y ou worried that your food would run out before you got money to buy more. Never true 05/24/2025 Within the past 12 months, t he food you bought just didn't last and you didn't have money to get more. Never true 05/24/2025 Transportation Needs Answer Date Record ed In the past 12 months, has l ack of reliable transportation kept you from medical appointments, meetings, work or from getting things needed for daily living? No 05/24/2025 Financial Resource Strain Answer Date R ecorded How hard is it for you to pa y for the very basics like food, housing, medical care, and heating? Would you say it is: Not hard at all 05/24/2025 Employment Answer Date Recorded Do you want help finding or keeping work or a job? I do not need or want help 05/24/2025 Family and Community Support Answer Rk e Recorded If for any reason you need h elp with day-to-day activities such as bathing, preparing meals, shopping, managing finances, etc., do you get the help you need? I don't need any help 05/24/2025 Feeling Lonely or Isolated 0 05/24 Educational Attainment Answer Date Kale rded Do you speak a language other than Italian at [facility]? No 05/24/2025 Do you want help with school or training? For example, starting or completing job training or getting a high school diploma, GED or equivalent. No 05/24/2025 Physical Activity Answer Date Recorded Number of minutes of exercise per week 0 05/24/2025 Self Management Answer Date Recorded Because of a physical, menta l, or emotional condition, do you have serious difficulty concentrating, remembering, or making decisions? (5 years or older) No 05/24/2025 Because of a physical, menta l, or emotional condition, do you have difficulty doing errands alone such as visiting a doctor's office or shopping? (15 years or older) No 05/24/2025 Substance Use Answer Date Recorded How many times in the past y ear have you used prescription drugs for non-medical reasons? Never 05/24/2025 How many times in the past year have you used il legal drugs? Never 05/24/2025 Mental Health Answer Date Recorded Calculation of above two rows 0 Estimated Date of Delivery Comme nts Yes 05/03/2026 Based on Ultraso und Sex and Gender Information Value Date Recorded Sex Assigned at Female 04/18/2025 8:27 AM CDT Legal Sex Female 1:02 PM CDT Gender Identity Female 04/18/2025 8:27 AM CDT Sexual Orientation Not on file documented as of this encounter Plan of Treatment Upcoming Encounters Date Type Department Care Team (Late st Contact Info) Description 10/19/2025 8:00 AM EST Procedure Visit [facility] Maternal Medicine [address] [place] [address] 10/19/2025 8:30 AM EST Routine [facility] [employer] [facility] [place] [address] [place] [id number] Tracee Astudillo MD [address] [place] [address] 11/16/2025 8:30 AM EST Routine [facility] [facility] - [place] [address] [place] [address] Tracee Astudillo MD [address] [place] [address] 12/14/2025 9:00 AM EST Routine [facility] [facility] - [place] [address] [place] [address] Tracee Astudillo MD [address] [place] [address] 01/11/2026 8:30 AM EDT Routine [facility] [employer] [facility] - [place] [address] [place] [address] Tracee Astudillo MD [address] [place] [address] 02/08/2026 8:30 AM EDT Routine [facility] [employer] [facility] [place] [address] [place] [phone] Tracee Astudillo MD [address] [place] [address] 02/20/2026 8:30 AM EDT Routine [facility] [employer] [facility] [place] [address] [place] [address] Tracee Astudillo MD [address] [place] [address] 03/11/2026 8:00 AM EDT Procedure Visit [facility] [employer] [facility] [facility] [place] [address] [place] [address] 03/11/2026 8:30 AM EDT Routine [facility] [employer] [facility] [place] [address] [place] [address] Tracee Astudillo MD [address] [place] [address] 03/25/2026 8:30 AM EDT Routine [facility] [employer] [facility] [place] [address] [place] [address] Tracee Astudillo MD [address] [place] [address] 04/08/2026 8:30 AM EDT Routine [facility] [employer] - [place] [address] [place] [address] Tracee Astudillo MD [address] [place] [address] 04/15/2026 8:30 AM EDT Routine [facility] [employer] [facility] [place] [address] [place] [address] Tracee Astudillo MD [address] [place] [address] 04/22/2026 8:30 AM EDT Routine [facility] [employer] [facility] [place] [address] [place] [address] Tracee Astudillo MD [address] [place] [address] 04/29/2026 8:30 AM EDT Routine [facility] [employer] [facility] [place] [address] [place] [address] Tracee Astudillo MD [address] [place] [address] 05/03/2026 8:30 AM EDT Routine [facility] [employer] [facility] [place] [address] [place] [address] Tracee Astudillo MD [address] [place] [address] documented as of this encounter Procedures Procedure Name Priority Date/Time Associated Diagnosis Comments US OB GENERAL ORDER Routine 09/27/2025 5 :45 PM EST Missed menses documented in this encounter Results * Ultrasound OB General Order (09/27/2025 5:45 PM EST) Anatomical Region Laterality Modality Abdomen Ultrasound Narrative 09/27/2025 5:45 PM EST Indication ======== Viability and Dating Method ====== Transvaginal ultrasound examination. View: Sufficient ========= Castaneda . Number of embryos: 1 Dating ====== LMP on: 06/22/2025 GA by LMP 13 w + 5 d ARMINDA by LMP: 03/29/2026 Ultrasound examination on: 09/26/2025 GA by U/S based upon: CRL GA by U/S 8 w + 5 d ARMINDA by U/S: 05/03/2026 Assigned: based on ultrasound (CRL), selected on 09/26/2025 Assigned GA 8 w + 5 d Assigned ARMINDA: 05/03/2026 Assessment Gestational sac: visualized Location: intrauterine Yolk sac: visualized YS 5.7 mm 85% Grisolia Embryo: visualized CRL 21.1 mm 8w 5d Hadlock Cardiac activity: present FHR 178 bpm Placenta: too early to evaluate Maternal Structures Uterus / Cervix Cervical length 30.2 mm Ovaries / Tubes / Adnexa Rt ovary D1 37.10 mm Rt ovary D2 28.20 mm Rt ovary D3 18.20 mm Rt ovary Vol 10.0 cmi? Impression ========= SIUP with cardiac activity Dating is by todays biometry with ARMINDA of 05/03/26 Coding ====== Code: 21701 Description: Ultrasound, uterus, transvaginal Procedure Note Casis Olmos MD - 09/27/2025 Indication ======== Viability and Dating Method ====== Transvaginal ultrasound examination. View: Sufficient ========= Castaneda . Number of embryos: 1 Dating ====== LMP on:06/22/2025 GA by LMP13 w + 5 d ARMINDA by LMP:03/29/2026 Ultrasound examination on:09/26/2025 GA by U/S based upon:CRL GA by U/S8 w + 5 d ARMINDA by U/S:05/03/2026 Assigned:based on ultrasound (CRL), selected on 09/26/2025 Assigned GA8 w + 5 d Assigned ARMINDA:05/03/2026 Assessment Gestational sac:visualized Location:intrauterine Yolk sac:visualized YS5.7 mm 85% Grisolia Embryo:visualized CRL21.1 mm8w 5d Hadlock Cardiac activity:present TNA571 bpm Placenta:too early to evaluate Maternal Structures Uterus / Cervix Cervical ostnsy91.2 mm Ovaries / Tubes / Adnexa Rt ovary D137.10 mm Rt ovary D228.20 mm Rt ovary D318.20 mm Rt ovary Vol10.0 cmi? Impression ========= SIUP with cardiac activity Dating is by todays biometry with ARMINDA of 05/03/26 Coding ====== Code:97234 Description:Ultrasound, uterus, transvaginal us Tracee Astudillo MD IMG US ORDERABLES Final Resul t documented in this encounter Visit Diagnoses Diagnosis Missed menses documented in this encounter Care Teams Aeroplane Pilot Relationship Specialty Start Date End Date Pancho Grace MD [address] [facility] [address] [place] [address] PCP - General Family Medicine 01/19/24 documented as of this encounter
--- OUTSIDE RECORDS SUMMARY | 2025-09-27 08:30 | XMS_ITS | Encounter Summary ---
Author Organization [employer] ([place], [place], [place], [place], [place]) Address [address] [place] [address] Care Team Providers Care Beekeeper Farmer Name Role Phone Pancho Grace MD Primary Care Provider [phone] Reason for Referral * Ultrasound (Routine) - Authorized Specialty Diagnoses / Procedures Referred By Simba funez Referred To Contact Maternal and Medicine Diagnoses First trimester Procedures Ultrasound OB General Order Tracee Astudillo MD [address] [place] [address] Phone: tel: fax: [facility] [address] [place] [address] Phone: tel: fax: Referral ID Status Reason Start Date Expiration Date V isits Requested Visits Authorized [id number] Authorized 09/27/2025 09/27/2026 1 1 Encounter Details Date Type Department Care Team (Late st Contact Info) Description 09/27/2025 8:30 AM EST Initial [facility] M[facility] MACHINIST - [employer] [address] [place] [address] Tracee Astudillo MD [address] [place] [address] [place]: [id number] Social History Tobacco Use Types Packs/Day Years Used Date Smoking Tobacco: Never Smokeless Tobacco: Never Alcohol Use Standard Drinks/Week Comments Never 0 (1 standard drink = 0.6 oz pur e alcohol) [facility] - Mental Health Answer Date Recorde d [...] harm? Never 05/24/2025 How often does anyone, matrin solitario family and friends, scream or curse at you? Never 05/24/2025 Housing Stability Answer Date Recorded What is your living situation today? I have a [employer] place to live 05/24/2025 Think about the [...] Do you speak a language other than [place]ian at [facility]? No 05/24/2025 Do you want help [...] on file documented as of this encounter Last Filed Vital Signs Vital Sign Reading Time Taken Comments Blood Pressure 100/67 09/27/2025 8:59 AM EST Pulse 80 09/27/2025 8:59 AM EST Temperature - - Respiratory Rate - - Oxygen Saturation - - Inhaled Oxygen Concentration - - Weight 108.8 kg (239 lb 12.8 oz) 09/27/2025 8:59 AM EST Height - - Body Mass Index 39.9 06/05/2025 1:11 PM EDT documented in this encounter Functional Status * Over the past 2 weeks, how often have you been bothered by any of the following problems? Question Answer Date of Assessment Author Little interest or pleasure in doing things Not at all 09/27/2025 9:00 AM Taylor Hawley Feeling down, depressed, or hopeless Not at all 09/27/2025 9:00 AM Taylor Hawley Patient Health Questionnaire -2 Score 0 09/27/2025 9:00 AM Taylor Hawley documented as of this encounter Progress Notes * Taylor Garner - 09/27/2025 8:30 AM EST Pt here for NOB she denies any bleeding, contractions or loss of fluid. She is having a lot of nausea. RITIES SUPERVISOR * Reva Do RN - 09/27/2025 8:30 AM EST OB Teaching 1st Visit (conception - 13/6 wks) Pt has history of pre-eclampsia in prior . Review signs and symptoms and information sheetgiven. - What to expect during first trimester visits - Frequency of visits-q4 weeks to 28 weeks, biweekly from 28-36; weekly after 36 until delivery - US schedule - 12wk NT/NB, 20 weeks for gender and anatomy; 32 weeks for growth and presentation - Labs to be drawn after visit - titers, blood type, UA, STIs - NIPT labs to be drawn at 10 weeks or later - chromosomal changes and gender; carrier screening anytime - Safe foods to eat and foods to avoid - vitamins and nutritional needs - Safe medications to take during (before and after 12 weeks) - Common symptoms experienced during the first trimester and safe treatments - spotting - nausea/vomiting - swelling - heartburn - cramps - When to report to ER/LD - instructed if <16 weeks to go to ER, >16 weeks to LD - vaginal bleeding - contractions - leakage of fluids - decreased movement - Triage after hours line - Vaccines - Flu shot (June-December) -Covid -Tdap (27-36 weeks) -RSV (32-36 weeks); may have to pay out of pocket if out of season for Medicaid pt -Hep B (series of 3) if not immune -Tdap up to date recommended for family and caregivers -Safe sleep campaign information Handouts given in folder - CDC ???Hear her concerns?? maternal warning signs; [facility] estimate sheet; AAP Safe sleep routine handout; Healthy Eating in ; EPA ???Advice About Eating Fish?? 07/31 Questions answered and pt verbalized understanding. RITIES SUPERVISOR * Tracee Astudillo MD - 09/27/2025 8:30 AM EST New Gynecology Visit Date of Service: 09/27/2025 Name: Saumya Atkinson : 2000 Age: 24 y.o. Saumya Atkinson is a 24 y.o. and has Dysmenorrhea; Morbid obesity (HCC); Missed menses; History of pre-eclampsia in prior , currently ; First trimester ; Nausea and vomiting in ; Rectovaginal fistula; and History of forceps delivery in prior , c urrently on their problem list. and takes the following medications doxylamine, fluconazole, glycerin (laxative), metoclopramide, promethazine, and pyridoxine (vitamin B6) Farther along than expected. She has been nauseous and vomiting often. Has not taken anything for it. Not yet taking vitamin. Was using boric acid vaginal suppositories until she found out she was . History of forceps delivery with OP infant and 3rd-4th degree laceration with development of rectovaginal fistula and incontinence. Was evaluated for repair several years ago but was told she would have to have section if she had another and did not want it repaired. She has fecal urgency and incontinence of stool and gas for the past 7 years. History of pyelonephritis in last , no dysuria today. History of pre-eclampsia, delivered at 40 weeks. Unsure of magnesium. She is about to travel to [place] for a month to visit her boyfriend's family. Patient History Past Medical History: Diagnosis Date Arthritis Past Surgical History: Procedure Laterality Date CLOSURE,LACERATION N/A 05/24/2025 Procedure: REPAIR ENTEROTOMY, SMALL BOWEL; Surgeon: Montserrat Colón DO; Location: [facility] OR; Service: Obstetrics & Gynecology (regulatory compliance engineer); Laterality: N/A; HYSTEROSALPINGOGRAM N/A 05/24/2025 Procedure: HYSTEROSALPINGOGRAM; Surgeon: Montserrat Colón DO; Location: [facility] OR; Service: Obstetrics & Gynecology (regulatory compliance engineer); Laterality: N/A; LAPAROSCOPY,DIAGNOSTIC N/A 05/24/2025 Procedure: LAPAROSCOPY, DIAGNOSTIC; Surgeon: Montserrat Colón DO; Location: [facility] OR; Service: Obstetrics & Gynecology (regulatory compliance engineer); Laterality: N/A; possible laser, chromopertubation TONSILLECTOMY & ADENOIDECTOMY Social History Tobacco Use Smoking status: Never Smokeless tobacco: Never Substance Use Topics Alcohol use: Never Drug use: Never Family History Problem Relation Name Age of Onset Melanoma Mother Clotting disorder Father Clotting disorder Sister Ovarian cancer Sister Breast cancer Maternal Grandmother Allergies Allergen Reactions Omnicef [Cefdinir] Childhood reaction unsure Cephalexin Watermelon I have personally reviewed and updated the past medical history, past surgical history, social history, and family history. Review of Systems A complete ROS was obtained and all are negative except pertinent positives in HPI. Objective Vitals: 09/27/25 0859 BP: 100/67 Pulse: 80 Weight: 108.8 kg (239 lb 12.8 oz) LMP: 06/22/2025 Body mass index is 39.9 kg/m??. Physical Exam Constitutional: Appearance: Normal appearance. She is normal weight. Eyes: Extraocular Movements: Extraocular movements intact. Cardiovascular: Rate and Rhythm: Normal rate. Pulmonary: Effort: Pulmonary effort is normal. Abdominal: General: Abdomen is flat. Palpations: Abdomen is soft. Tenderness: There is no abdominal tenderness. Neurological: Mental Status: She is alert and oriented to person, place, and time. Mental status is at baseline. Skin: General: Skin is warm and dry. Psychiatric: Mood and Affect: Mood normal. Depression Assessment and Plan Depression Screen: (PHQ9 > 10 likely major depression; 5-9 = mild depression, 10-14 = moderate depression, 15-19 = moderately severe depression, > 20 = severe depression) PHQ2 = Patient Health Questionnaire-2 Score: 0 PHQ9 = Provider interpretation: Negative. no treatment needed based on clinical judgement Results Review: Result Date Procedure Results Follow-ups 01/19/2024 Pap Smear, Thin Prep Pap Smear: NILM HPV: N/A Transformation Zone: Present Clinical Support on 06/12/2025 Component Date Value Glucose Urine, POC 06/12/2025 Negative Bilirubin Urine, POC 06/12/2025 Negative Ketones Urine, POC 06/12/2025 Negative Specific [place] Urine, * 06/12/2025 1.025 SG Ratio Blood Urine, POC 06/12/2025 Negative pH, Urine 06/12/2025 6.0 pH units Protein Urine, POC 06/12/2025 Negative Urobilinogen Urine, POC 06/12/2025 0.2 mg/dL Nitrite Urine, POC 06/12/2025 Negative Leukocyte Esterase Urine* 06/12/2025 Negative Atopobium vaginae 06/12/2025 Low - 0 BVAB 2 06/12/2025 Low - 0 Megasphaera 1 06/12/2025 Low - 0 Kassandra albicans, ERIC 06/12/2025 Positive (A) Kassandra glabrata, ERIC 06/12/2025 Negative C parapsilosis/tropicalis 06/12/2025 Negative Kassandra lusitaniae, ERIC 06/12/2025 Negative Kassandra krusei, ERIC 06/12/2025 Negative Trich vag by ERIC 06/12/2025 Negative Chlamydia trachomatis, N* 06/12/2025 Negative Neisseria gonorrhoeae, N* 06/12/2025 Negative Office Visit on 05/28/2025 Component Date Value Glucose Urine, POC 05/28/2025 Negative Bilirubin Urine, POC 05/28/2025 Negative Ketones Urine, POC 05/28/2025 Small - 15 (A) Specific [place] Urine, * 05/28/2025 1.025 SG Ratio Blood Urine, POC 05/28/2025 Trace (A) pH, Urine 05/28/2025 8.5 pH units (A) Protein Urine, POC 05/28/2025 Small - 30+ (A) Urobilinogen Urine, POC 05/28/2025 0.2 mg/dL Nitrite Urine, POC 05/28/2025 Negative Leukocyte Esterase Urine* 05/28/2025 Small (A) Urine Culture, Routine 05/28/2025 Final report (A) Result 1 05/28/2025 Enterococcus faecalis (A) Result 2 05/28/2025 Comment Antimicrobial Susceptibi* 05/28/2025 Comment Admission on 05/24/2025, Discharged on 05/26/2025 Component Date Value POC-GLUCOSE 05/24/2025 100 Hand Rug Braider 05/24/2025 [id number] POC, URINE HCG 05/24/2025 Negative INTERNAL QC (VALID/INVAL* 05/24/2025 Valid Kit Lot Number 05/24/2025 [id number] Expiration Date 05/24/2025 [id number] RETYPE 05/24/2025 B POSITIVE Hemoglobin 05/24/2025 13.6 Hematocrit 05/24/2025 38.9 WBC 05/25/2025 12.7 (H) RBC 05/25/2025 4.42 Hemoglobin 05/25/2025 13.7 Hematocrit 05/25/2025 40.1 MCV 05/25/2025 91 MCH 05/25/2025 31.0 MCHC 05/25/2025 34.2 RDW 05/25/2025 11.9 Platelets 05/25/2025 208 MPV 05/25/2025 11.0 nRBC 05/25/2025 0 (L) Sodium 05/25/2025 142 Potassium 05/25/2025 4.5 Chloride 05/25/2025 111 CO2 05/25/2025 27 Calcium 05/25/2025 8.6 Glucose 05/25/2025 105 (H) BUN 05/25/2025 6 (L) Creatinine 05/25/2025 0.76 BUN/Creatinine 05/25/2025 8 Albumin 05/25/2025 3.7 Alkaline Phosphatase 05/25/2025 69 ALT 05/25/2025 26 AST 05/25/2025 11 Total Bilirubin 05/25/2025 0.4 Protein, Total 05/25/2025 7.2 Anion Gap 05/25/2025 9 A/G Ratio 05/25/2025 1.1 Globulin 05/25/2025 3.5 Osmolality Calc 05/25/2025 281.1 eGFR (mL/min/1.73m2) 05/25/2025 >60 Office Visit on 04/23/2025 Component Date Value aPTT 04/23/2025 25.5 PT 04/23/2025 11.1 INR 04/23/2025 1.0 Thrombin Time 04/23/2025 21.0 dRVVT 04/23/2025 37.4 Hexagonal Phase Phosphol* 04/23/2025 6 Anticardiolipin Ab,IgG,Qn 04/23/2025 <9 Anticardiolipin Ab,IgM,Qn 04/23/2025 <9 Beta-2 Glycoprotein I Ab* 04/23/2025 <9 Beta-2 Glycoprotein I Ab* 04/23/2025 <9 APS PANEL INTERPRETATION 04/23/2025 Comment INTERPRETATION 04/23/2025 Note Office Visit on 02/20/2025 Component Date Value WBC 02/22/2025 6.0 RBC 02/22/2025 4.58 Hemoglobin 02/22/2025 14.3 Hematocrit 02/22/2025 44.2 MCV 02/22/2025 97 MCH 02/22/2025 31.2 MCHC 02/22/2025 32.4 RDW 02/22/2025 12.0 Platelets 02/22/2025 225 % Neutros 02/22/2025 55 % Lymphs 02/22/2025 34 % Monos 02/22/2025 9 % Eos 02/22/2025 1 % Baso 02/22/2025 1 # Neutros 02/22/2025 3.3 # Lymphs 02/22/2025 2.0 Neut/Lymph Ratio 02/22/2025 1.7 # Monos 02/22/2025 0.5 # Eos 02/22/2025 0.0 Baso (Absolute) 02/22/2025 0.0 % Immature Grans 02/22/2025 0 # Immature Grans 02/22/2025 0.0 Vitamin D, 25-Hydroxy 02/22/2025 17.8 (L) Vitamin B12 02/22/2025 539 TSH 02/22/2025 1.650 Glucose, Serum 02/22/2025 88 BUN 02/22/2025 12 Creatinine, Serum 02/22/2025 0.90 EGFR 02/22/2025 92 BUN/Creatinine Ratio 02/22/2025 13 Sodium, Serum 02/22/2025 142 Potassium, Serum 02/22/2025 5.1 Chloride, Serum 02/22/2025 106 Carbon Dioxide, Total 02/22/2025 22 Calcium, Serum 02/22/2025 9.4 Protein, Total, Serum 02/22/2025 7.2 Albumin, Serum 02/22/2025 4.4 Globulin, Total 02/22/2025 2.8 Bilirubin, Total 02/22/2025 0.4 Alkaline Phosphatase, S 02/22/2025 76 AST (SGOT) 02/22/2025 18 ALT (SGPT) 02/22/2025 20 Hemoglobin A1c 02/22/2025 5.5 Cholesterol, Total 02/22/2025 147 Triglycerides 02/22/2025 52 HDL Cholesterol 02/22/2025 47 VLDL Cholesterol Michele 02/22/2025 11 LDL Calculated 02/22/2025 89 Ultrasound non-ob transvaginal Narrative: PELVIC ULTRASOUND HISTORY: Pelvic pain. COMPARISON: February 2025 PROCEDURE: Transvaginal images of the pelvis were obtained. FINDINGS: The uterus measures 9 x 5 cm. The endometrium is normal at 3 mm. The right ovary is normal . The left ovary demonstrates a 10 mm cyst. There is no significant free fluid . Impression: No acute process. Images reviewed, interpreted, and dictated by Ted Agarwal MD Plan Dating by U=8, FHT by BSUS today - 169. ARMINDA 05/03/2026 Unisom, B6 for nausea/vomiting along with mauricio and peppermint. Reglan prescribed if needed, and rectal phenergan if unable to tolerate PO. If unable to tolerate PO for 24 hours to go to ER. Patientis traveling to [place] for the next 4 weeks. Constipation, hydration, miralax, stool softener Encouraged PNV with folate, DHA Discussed primary section due to history of 3rd/4th degree with rectovaginal fistula and patient unsure at this time, will continue to discuss. PFPT referral during BMI 39 - early GCT next visit, A1c 5.5 in February History of Pre-E - BP normal today. bASA at 14 weeks and baseline labs at next visit UTD on PAP Urine culture, STI screen, UDS today New OB labs, early GCT, carrier screen, NIPT, NTNB next visit after returns from [place]. Diagnoses and all orders for this visit: First trimester - Ultrasound OB General Order; Future Missed menses - CT, NG, TRICH VAG BY ERIC; Future - Compliance Drug Analysis, Ur; Future - POCT urinalysis dipstick - URINE CULTURE, ROUTINE; Future History of pre-eclampsia in prior , currently Nausea and vomiting in History of forceps delivery in prior , currently Rectovaginal fistula Obesity (BMI 35.0-39.9 without comorbidity) Incontinence of feces, unspecified fecal incontinence type Constipation, unspecified constipation type Other orders - pyridoxine, vitamin B6, (VITAMIN B6) 50 MG tablet; Take 0.5 tablets (25 mg total) by mouth 3 (three) times daily as needed (nausea). - promethazine (PHENERGAN) 12.5 MG suppository; Insert 2 suppositories (25 mg total) into the rectum every 6 (six) hours as needed for nausea or vomiting. - doxylamine (Unisom, doxylamine,) 25 mg tablet; Take 0.5-1 tablets (12.5-25 mg total) by mouth every night as needed for insomnia or nausea. - metoclopramide (REGLAN) 10 MG tablet; Take 1 tablet (10 mg total) by mouth 4 (four) times daily as needed (nausea and vomiting) Take with meals. I spent 45 minutes on this patient???s care today. This time includes preparing to see the patient (reviewing chart, test results, and prior notes), obtaining and reviewing history, performing an examination, counseling and educating the patient and/or caregiver, ordering medications/tests/procedures, documenting clinical information in the electronic health record, and coordinating care. Time spent on separately billable procedures is not included. Tracee Astudillo MD RITIES SUPERVISOR RITIES SUPERVISOR documented in this encounter Plan of Treatment Upcoming Encounters Date Type Department Care Team (Late st Contact Info) Description 10/19/2025 8:00 AM EST Procedure Visit [facility] Maternal Medicine [address] [place] [address] 10/19/2025 8:30 AM EST Routine [facility] - [place] [address] [place] [address] Tracee Astudillo MD [address] [place] [address] 11/16/2025 8:30 AM EST Routine [facility] - [place] [address] [place] [phone] Tracee Astudillo MD [address] [place] [address] 12/14/2025 9:00 AM EST Routine [facility] - [place] [address] [place] [phone] Tracee Astudillo MD [address] [place] [address] 01/11/2026 8:30 AM EDT Routine [facility] - [place] [address] [place] [address] Tracee Astudillo MD [address] [place] [address] 02/08/2026 8:30 AM EDT Routine [facility] - [place] [address] [place] [phone] Tracee Astudillo MD [address] [place] [address] 02/20/2026 8:30 AM EDT Routine [facility] - [place] [address] [place] [address] Tracee Astudillo MD [address] [place] [address] 03/11/2026 8:00 AM EDT Procedure Visit [facility] - [place] [address] [place] [address] 03/11/2026 8:30 AM EDT Routine [facility] - [place] [address] [place] [address] Tracee Astudillo MD [address] [place] [address] 03/25/2026 8:30 AM EDT Routine [facility] - [place] [address] [place] [address] Tracee Astudillo MD [address] [place] [address] 04/08/2026 8:30 AM EDT Routine [facility] - [place] [address] [place] [address] Tracee Astudillo MD [address] [place] [address] 04/15/2026 8:30 AM EDT Routine [facility] - [place] [address] [place] [address] Tracee Astudillo MD [address] [place] [address] 04/22/2026 8:30 AM EDT Routine [facility] - [place] [address] [place] [address] Tracee Astudillo MD [address] [place] [address] 04/29/2026 8:30 AM EDT Routine [facility] - [place] [address] [place] [address] Tracee Astudillo MD [address] [place] [address] 05/03/2026 8:30 AM EDT Routine [facility] - [place] [address] [place] [address] Tracee Astudillo MD [address] [place] [address] Scheduled Orders Name Type Priority Associated Diagnoses Order Schedule CT, NG, TRICH VAG BY ERIC Pathology and Cytology AP Routine Missed menses Expected: 09/27/2025 (Approximate), Expires: 09/27/2026 Compliance Drug Analysis, Ur Lab Routine Missed menses Expected: 09/27/2025, Expires: 09/27/2026 URINE CULTURE, ROUTINE Microbiology Routine Missed menses Expected: 09/27/2025, Expires: 12/26/2025 Ultrasound OB General Order Imaging Routine First trimester Expected: 09/27/2025, Expires: 09/27/2026 documented as of this encounter Procedures Procedure Name Priority Date/Time Associated Diagnosis Comments POCT URINALYSIS, AUTO W/O SCOPE Routine 09/27/2025 9:04 AM EST Missed menses documented in this encounter Results * (ABNORMAL) POCT urinalysis dipstick (09/27/2025 9:04 AM EST) Glucose Urine, POC Negative Negative Bilirubin Urine, POC Negative Negative Ketones Urine, POC Negative Negative Specific [place] Urine, POC 1.020 SG Ratio 1.005 SG Ratio, 1.010 SG Ratio, 1.015 SG Ratio, 1.020 SG Ratio, 1.025 SG Ratio, 1.030 SG Ratio Blood Urine, POC Negative Negative pH, Urine 8.5 pH units(A) 5.0 pH units, 5.5 pH units, 6.0 pH units, 6.5 pH units, 7.0 pH units, 7.5 pH units, 8.0 pH units Protein Urine, POC Negative Negative Urobilinogen Urine, POC 0.2 mg/dL 0.2 mg/dL, 1 mg/dL Nitrite Urine, POC Negative Negative Leukocyte Esterase Urine, POC Trace(A) Negative 09/27/2025 9:04 AM EST us Tracee Astudillo MD POINT OF CARE TEST ORDERABLES Final Result documented in this encounter Visit Diagnoses Diagnosis First trimester - Primary state, incidental Missed menses History of pre-eclampsia in prior , currently with other poor obstetric history Nausea and vomiting in Unspecified vomiting of , unspecified as to episode of care History of forceps delivery in prior , currently with other poor obstetric history Rectovaginal fistula Digestive-genital tract fistula, female Obesity (BMI 35.0-39.9 without comorbidity) Incontinence of feces, unspecified fecal incontinence type Constipation, unspecified constipation type documented in this encounter Care Teams Beekeeper Farmer Relationship Specialty Start Date End Date Pancho Grace MD [address] [facility] [address] [place] [address] PCP - General Family Medicine 01/19/24 documented as of this encounter
--- OUTSIDE RECORDS SUMMARY | 2025-10-01 08:26 | XMS_ITS | Clinical Summary ---
Author Organization Healthcare Address [address] [place] [address] Care Team Providers Care [facility] Experience Strategy Name Role Phone Pancho Grace MD Primary Care Provider + [phone] Family History Medical History Relation Name Comments Conversions - Other Maternal Cousin Famil y History Of Ulcerative Colitis Conversions - Other Maternal Great-Grandmother EE (eosinophilic esophagitis) Conversions - Other Paternal Cousin H. py elizabeth infection Relation Name Status Comments Maternal Cousin Maternal Great-Grandmother Paternal Cousin Social History Tobacco Use Types Packs/Day Years Used Date Smoking Tobacco: Passive Smo ke Exposure - Never Smoker Comments Unknown Sex and Gender Information Value Date Recorded Sex Assigned at Not on file Legal Sex Female 6:47 PM EDT Gender Identity Not on file Sexual Orientation Not on file Last Filed Vital Signs Vital Sign Reading Time Taken Comments Blood Pressure 121/77 04/11/2019 10:37 AM EDT Pulse 86 04/11/2019 10:37 AM EDT Temperature 36.7 C (98.1 F) 04/11/2019 10:37 AM EDT Respiratory Rate 20 11/16/2017 2:26 PM EST Oxygen Saturation - - Inhaled Oxygen Concentration - - Weight 107 kg (235 lb 14.3 oz) 04/11/2019 10:37 AM EDT Height 164.4 cm (5' 4.72 ) 11/16/2017 2:26 PM ES T Body Mass Index - - Plan of Treatment Not on file Care Teams [facility] Experience Strategy Relationship Specialty Start Date End Date Pancho Grace MD [address] [facility] [address] [place] [address] PCP - General 02/21/21
--- OUTSIDE RECORDS SUMMARY | 2025-10-01 08:27 | XMS_ITS | Clinical Summary ---
Author Organization [employer] ([place], [place], [place], [place], [place]) Address [address] [place] [address] Care Team Providers Care Grind Operator Name Role Phone Pancho Grace MD Primary Care Provider [phone] Allergies Active Allergy Reactions Criticality Noted Date Comments Cephalexin Low 07/08/2023 Cefdinir 01/19/2024 Childhood reaction unsure Watermelon Low 07/08/2023 Medications pyridoxine, vitamin B6, (VITAMIN B6) 50 MG tablet Take 0.5 tablets (25 mg total) by mouth 3 (three) times daily as needed (nausea). 60 tablet 3 025 Active promethazine (PHENERGAN) 12.5 MG suppository Insert 2 suppositories (25 mg total) into the rectum every 6 (six) hours as needed for nausea or vomiting. 30 each 1 025 Active doxylamine (Unisom, doxylamine,) 25 mg tablet Take 0.5-1 tablets (12.5-25 mg total) by mouth every night as needed for insomnia or nausea. 30 tablet 3 025 Active metoclopramide (REGLAN) 10 MG tablet Take 1 tablet (10 mg total) by mouth 4 (four) times daily as needed (nausea and vomiting) Take with meals. 30 tablet 3 025 Active glycerin, laxative, supp suppositoryInd ications:Const ipation Insert 1 suppository into the rectum daily as needed. 12 suppository 025 2024 Discontinued fluconazole (Diflucan) 150 MG tabletIndicati ons:Yeast infection Take 1 tablet (150 mg total) by mouth every third day. 2 tablet 025 2024 Discontinued Active Problems Problem Noted Date Diagnosed Date Missed menses 09/27/2025 History of pre-eclampsia in prior , currently 09/27/2025 First trimester 09/27/2025 Nausea and vomiting in 09/27/2025 Rectovaginal fistula 09/27/2025 History of forceps delivery in prior , currently 09/27/2025 Morbid obesity 05/24/2025 Dysmenorrhea 04/23/2025 Estimated Date of Delivery Comme nts Yes 05/03/2026 Based on Ultraso und Encounters Date Type Department Care Team Description 09/27/2025 8:30 AM EST Initial [facility] HALL CLEANER - [employer] [address] [place] [phone] Tracee Astudillo MD [place]: 8w6d 09/26/2025 11:00 AM EST Procedure Visit [facility] HALL CLEANER - [place] [address] [place] [phone] Missed menses from Last 3 Months Family History Medical History Relation Name Comments Clotting disorder Father Breast cancer Maternal Grandmother Melanoma Mother Clotting disorder Sister Ovarian cancer Sister Relation Name Status Comments Father Maternal Grandmother Mother Sister Social History Tobacco Use Types Packs/Day Years Used Date Smoking Tobacco: Never Smokeless Tobacco: Never Tobacco Cessation:Counseling Given: No Alcohol Use Standard Drinks/Week Comments Never 0 (1 standard drink = 0.6 oz pur e alcohol) [facility] - Mental Health Answer Date Recorde [...] Do you speak a language other than Greenlandic at [facility]? No 05/24/2025 Do you want help with [...] AM CDT Sexual Orientation Not on file Last Filed Vital Signs Vital Sign Reading Time Taken Comments Blood Pressure 100/67 09/27/2025 8:59 AM EST Pulse 80 09/27/2025 8:59 AM EST Temperature 36.9 C (98.4 F) 05/28/2025 1:26 PM EDT Respiratory Rate 20 06/05/2025 1:11 PM EDT Oxygen Saturation 98% 06/05/2025 1:11 PM EDT Inhaled Oxygen Concentration - - Weight 108.8 kg (239 lb 12.8 oz) 09/27/2025 8:59 AM EST Height 165.1 cm (5' 5 ) 06/05/2025 1:11 PM EDT Body Mass Index 39.9 06/05/2025 1:11 PM EDT Plan of Treatment Upcoming Encounters Date Type Department Care Team (Late st Contact Info) Description 10/19/2025 8:00 AM EST Procedure Visit [facility] Maternal Medicine [address] [facility] [address] [place] [address] 10/19/2025 8:30 AM EST Routine [facility] HALL CLEANER - [place] [address] [facility] [address] [place] [address] Tracee Astudillo MD [address] [place] [address] 11/16/2025 8:30 AM EST Routine [facility] HALL CLEANER - [place] [address] [place] [phone] Tracee Astudillo MD [address] [place] [address] 12/14/2025 9:00 AM EST Routine [facility] HALL CLEANER - [place] [address] [place] [phone] Tracee Astudillo MD [address] [place] [address] 01/11/2026 8:30 AM EDT Routine [facility] HALL CLEANER - [place] [address] [place] [address] Tracee Astudillo MD [address] [place] [address] 02/08/2026 8:30 AM EDT Routine [facility] HALL CLEANER - [place] [address] [place] [address] Tracee Astudillo MD [address] [place] [address] 02/20/2026 8:30 AM EDT Routine [facility] HALL CLEANER - [place] [address] [place] [address] Tracee Astudillo MD [address] [place] [address] 03/11/2026 8:00 AM EDT Procedure Visit [facility] HALL CLEANER - [place] [address] [place] [address] 03/11/2026 8:30 AM EDT Routine [facility] HALL CLEANER - [place] [address] [place] [address] Tracee Astudillo MD [address] [place] [address] 03/25/2026 8:30 AM EDT Routine [facility] HALL CLEANER - [place] [address] [place] [address] Tracee Astudillo MD [address] [place] [address] 04/08/2026 8:30 AM EDT Routine [facility] HALL CLEANER - [place] [address] [place] [address] Tracee Astudillo MD [address] [place] [address] 04/15/2026 8:30 AM EDT Routine [facility] HALL CLE[facility]ER - [place] [address] [place] [address] Tracee Astudillo MD [address] [place] [address] 04/22/2026 8:30 AM EDT Routine [facility] HALL CLEANER - [place] [address] [place] [address] Tracee Astudillo MD [address] [place] [address] 04/29/2026 8:30 AM EDT Routine [facility] HALL CLEANER - [place] [address] [place] [address] Tracee Astudillo MD [address] [place] [address] 05/03/2026 8:30 AM EDT Routine [facility] HALL CLEANER - [place] [address] [place] [address] Tracee Astudillo MD [address] [place], [place] [id number] Health Maintenance Due Date Last Done Comments Chlamydia and Gonorrhea Screening 2001 HIV Screening 2016 Meningococcal B Vaccine (1 of 2 - Standard) 2017 Hepatitis C Screening 12/18/2019 DTAP/TDAP/TD VACCINES (7 - Td or Tdap) 08/09/2023 08/09/2013, 05/19/2006, 07/04/2003, Additional history exists COVID-19 VACCINE ( season) 2025 Influenza Vaccine (#1) 2025 Depression Screening (12+) 09/27/2026 09/27/2025 Tobacco Cessation Counseling and Screening (12+) 09/27/2026 09/27/2025 Pap Smear 01/18/2027 01/19/2024 Lipid Panel 02/23/2028 02/22/2025 Pneumococcal Vaccine: 0-49 Years Aged Out No longer eligible based on patient's age to complete this topic Respiratory Syncytial Virus (RSV) Adult or (No Doses Required) Completed Procedures Procedure Name Priority Date/Time Associated Diagnosis Comments US OB GENERAL ORDER Routine 09/27/2025 5:45 PM EST Missed menses POCT URINALYSIS, AUTO W/O SCOPE Routine 09/27/2025 9:04 AM EST Missed menses LIPID PANEL Routine 02/22/2025 9:59 AM EDT Fatigue PAP SMEAR, THIN PREP (MCT BKR) AP Routine 01/19/2024 12:00 AM EDT from Last 3 Months or Most Recently Relevant to Health Maintenance Results * Ultrasound OB General Order (09/27/2025 [...] with ARMINDA of 05/03/26 Coding ====== Code: 20206 Description: Ultrasound, uterus, transvaginal Procedure Note Cassi Olmos MD - 09/27/2025 Indication ======== Viability [...] Embryo:visualized CRL21.1 mm8w 5d [place] Cardiac activity:present YDH224 bpm Placenta:too early to evaluate Maternal Structures Uterus / Cervix Cervical hqjbne59.2 mm Ovaries / Tubes / Adnexa Rt ovary D137.10 mm Rt ovary D228.20 mm Rt ovary D318.20 mm Rt ovary Vol10.0 cmi? Impression ========= SIUP with cardiac activity Dating is by todays biometry with ARMINDA of 05/03/26 Coding ====== Code:88915 Description:Ultrasound, uterus, transvaginal us Tracee Astudillo MD [facility] [place] ORDERABLES Final Resul t * (ABNORMAL) POCT urinalysis dipstick (09/27/2025 9:04 AM EST) Glucose Urine, POC Negative Negative Bilirubin Urine, POC Negative Negative Ketones Urine, POC Negative Negative Specific [place] Urine, POC 1.020 SG Ratio 1.005 SG [...] POINT OF CARE TEST ORDERABLES Final Result * Lipid panel (02/22/2025 9:59 AM EDT) [facility] Cholesterol, Total 147 100 - 199 mg/dL [facility] Triglycerides 52 0 - 149 mg/dL [facility] HDL Cholesterol 47 >39 mg/dL [facility] VLDL Cholesterol Michele 11 5 - 40 mg/dL [facility] LDL Calculated 89 0 - 99 mg/dL [facility] Blood 02/22/2025 9:59 AM EDT 02/22/2025 Narrative [facility] - 02/23/2025 7:06 AM EDT Performed at: 01 - [facility] [id number] Load Checker: José Miguel Boucher PhD, Phone: [phone] us Montserrat Colón DO LAB BLOOD ORDERABLES Final Resul t [facility] * Pap Smear, Thin Prep (01/19/2024 12:00 AM EDT) Vaginal/Cervical/ Endocervical OTHER / Unknown us Historical Provider PATHOLOGY/CYTOLOGY ORDERA BLES Final Result [facility] [address] from Last 3 Months or Most Recently Relevant to Health Maintenance Insurance [employer] [place] Advance Directives For more information, please contact: [phone] * Full Code (Latest Code Status on File) Date Activated Date Inactivated Comments 05/24/2025 12:12 PM 05/26/2025 3:31 PM * Full Code Date Activated Date Inactivated Comments 05/24/2025 9:07 AM 05/24/2025 12:12 PM Care Teams Grind Operator Relationship Specialty Start Date End Date Pancho Grace MD [address] [facility] [address] [place] [address] PCP - General Family Medicine 01/19/24
--- OUTSIDE RECORDS SUMMARY | 2025-10-01 08:27 | XMS_ITS | Referral Summary ---
Author Organization [employer] ([place], [place], [place], [place], [place]) Address [address] [place] [address] Care Team Providers Care Financial Associate Name Role Phone Pancho Grace MD Primary Care Provider [phone] Encounters Date Type Department Care Team Description 09/27/2025 8:30 AM EST Initial [facility] MEDICAL LABORATORY MANAGER - [employer] [address] [place] [address] Tracee Astduillo MD [place]: 8w6d 09/26/2025 11:00 AM EST Procedure Visit [facility] MEDICAL LABORATORY MANAGER - [employer] [address] [place] [address] Missed menses from Last 3 Months Allergies Active Allergy Reactions Criticality Noted Date [...] for insomnia or nausea. 30 tablet 3 Active metoclopramide (REGLAN) 10 MG tablet Take 1 tablet (10 mg total) by mouth 4 (four) times daily as needed (nausea and vomiting) Take with meals. 30 tablet 3 Active glycerin, laxative, supp suppositoryInd ications:Const ipation [...] nts Yes 05/03/2026 Based on Ultraso und Social History Tobacco Use Types Packs/Day Years Used Date Smoking Tobacco: Never Smokeless Tobacco: Never Tobacco Cessation:Counseling Given: No Alcohol Use Standard Drinks/Week Comments Never 0 (1 standard drink = 0.6 oz pur e alcohol) [facility] - Mental Health Answer Date Recorde d Little interest or pleasure in doing things Not at all 09/27/2025 Feeling down, depressed, or hopeless Not at all 09/27/2025 Feeling of Stress Not on file 09/27/2025 Utilities Answer Date Recorded In the past 12 months, has t he [employer], gas, oil, or water [employer] threatened to shut off services in your [...] harm? Never 05/24/2025 How often does anyone, inclu ding family and friends, scream or curse at [...] Do you speak a language other than Persian at [facility]? No 05/24/2025 Do you want help with [...] Description 10/19/2025 8:00 AM EST Procedure Visit [facility] Maternal Medicine [address] [place] [address] 10/19/2025 8:30 AM EST Routine [facility] MEDICAL LABORATORY MANAGER - [place] [address] [facility] [address] [place] [address] Tracee Astudillo MD [address] [place] [address] 11/16/2025 8:30 AM EST Routine [facility] MEDICAL LABORATORY MANAGER - [place] [address] [place] [address] Tracee Astudillo MD [address] [place] [address] 12/14/2025 9:00 AM EST Routine [facility] MEDICAL LABORATORY MANAGER - [place] [address] [place] [address] Tracee Astudillo MD [address] [place] [address] 01/11/2026 8:30 AM EDT Routine [facility] MEDICAL LABORATORY MANAGER - [place] [address] [place] [address] Tracee Astudillo MD [address] [place] [address] 02/08/2026 8:30 AM EDT Routine [facility] MEDICAL LABORATORY MANAGER - [place] [address] [place] [address] Tracee Astudillo MD [address] [place] [address] 02/20/2026 8:30 AM EDT Routine [facility] MEDICAL LABORATORY MANAGER - [place] [address] [place] [address] Tracee Astudillo MD [address] [place] [address] 03/11/2026 8:00 AM EDT Procedure Visit [facility] MEDICAL LABORATORY MANAGER - [place] [address] [place] [address] 03/11/2026 8:30 AM EDT Routine [facility] MEDICAL LABORATORY MANAGER - [place] [address] [place] [address] Tracee Astudillo MD [address] [place] [address] 03/25/2026 8:30 AM EDT Routine [facility] MEDICAL LABORATORY MANAGER - [place] [address] [place] [address] Tracee Astudillo MD [address] [place] [address] 04/08/2026 8:30 AM EDT Routine [facility] MEDICAL LABORATORY MANAGER - [place] [address] [place] [address] Tracee Astudillo MD [address] [place] [address] 04/15/2026 8:30 AM EDT Routine [facility] MEDICAL LABORATORY MANAGER - [place] [address] [place] [address] Tracee Astudillo MD [address] [place] [address] 04/22/2026 8:30 AM EDT Routine [facility] MEDICAL LABORATORY MANAGER - [place] [address] [place] [address] Tracee Astudillo MD [address] [place] [address] 04/29/2026 8:30 AM EDT Routine [facility] MEDICAL LABORATORY MANAGER - [place] [address] [place] [address] Tracee Astudillo MD [address] [place], [place] [address] 05/03/2026 8:30 AM EDT Routine [facility] MEDICAL LABORATORY MANAGER - [place] [address] [place] [address] Tracee Astudillo MD [address] [place], [place] [address] Procedures Procedure Name Priority Date/Time Associated Diagnosis [...] with ARMINDA of 05/03/26 Coding ====== Code: 77935 Description: Ultrasound, uterus, transvaginal Procedure Note Cassi [...] Embryo:visualized CRL21.1 mm8w 5d [place] Cardiac activity:present WXR276 bpm Placenta:too early to evaluate Maternal Structures Uterus / Cervix Cervical mscujx06.2 mm Ovaries / Tubes / Adnexa Rt ovary D137.10 mm Rt ovary D228.20 mm Rt ovary D318.20 mm Rt ovary Vol10.0 cmi? Impression ========= SIUP with cardiac activity Dating is by todays biometry with ARMINDA of 05/03/26 Coding ====== Code:84175 Description:Ultrasound, uterus, transvaginal Tracee Astudillo MD IM US ORDERABLES Final Resul t * (ABNORMAL) POCT urinalysis dipstick (09/27/2025 9:04 AM EST) Glucose Urine, POC Negative Negative Bilirubin Urine, POC Negative Negative Ketones Urine, POC Negative Negative Specific [place] Urine, POC 1.020 SG Ratio 1.005 SG [...] POC Trace(A) Negative 09/27/2025 9:04 AM EST Tracee Astudillo MD POINT OF CARE TEST ORDERABLES Final Result * Lipid panel (02/22/2025 9:59 AM EDT) Cholesterol, Total 147 100 - 199 mg/dL [facility] Triglycerides 52 0 - 149 mg/dL [facility] HDL Cholesterol 47 >39 mg/dL [facility] VLDL Cholesterol Michele 11 5 - 40 mg/dL [facility] LDL Calculated 89 0 - 99 mg/dL [facility] Blood 02/22/2025 9:59 AM EDT 02/22/2025 Narrative [facility] - 02/23/2025 7:06 AM EDT Performed at: - [facility] [address] [id number] Body Corporate Manager: José Miguel Boucher PhD, Phone: [phone] us Montserrat Colón DO LAB BLOOD ORDERABLES Final Resul t [facility] * Pap Smear, Thin Prep (01/19/2024 12:00 AM EDT) Vaginal/Cervical/ Endocervical OTHER / Unknown Historical Provider MD PATHOLOGY/CYTOLOGY ORDERA BLES Final Result [facility] [address] from Last 3 Months or Most Recently Relevant to Health Maintenance Insurance [place] [id number] [employer] [facility] Advance Directives For more information, please contact: [phone] * Full Code (Latest Code Status on File) Date Activated Date Inactivated Comments 05/24/2025 12:12 PM 05/26/2025 3:31 PM * Full Code Date Activated Date Inactivated Comments 05/24/2025 9:07 AM 05/24/2025 12:12 PM Care Teams Financial Associate Relationship Specialty Start Date End Date Pancho Grace MD [address] [facility] [address] [place] [address] PCP - General Family Medicine 01/19/24
== END 2025-09-29 23:59 | disposition home or self-care (01) ==
LOC: LAB.DROPOF 10-01 08:23
PROVIDERS: PCP Family Medicine; Visit Provider Nurse Practitioner
DX: N39.0 Urinary tract infection, site not specified (principal)
CPT/HCPCS: 87086